=== PATIENT | male | born 1975 | race Caucasian/White ===

== ENCOUNTER 2022-10-14 06:16 | Emergency (ER) | payer OTHER, SELFPAY ==
[2022-10-14] VITALS (26 sets, daily range): BP systolic 112–150; BP diastolic 51–104; PULSE 76–103; RESP 13–24; TEMP 36.6; O2SAT 96–100
--- NOTE | ~2022-10-14 | XR_ITS ---
Clinical Indication: Shortness of breath PA and lateral views of the chest: Comparison: 09/26/2018 Findings: The lungs are clear, without evidence of focal consolidation or pleural effusion. Cardiome diastinal silhouette is within normal limits. Bones and soft tissues are unremarkable. Impression: Normal chest. Reviewed, dictated and finalized at location . Impression: Normal chest.
--- NOTE | 2022-10-14 06:34 | ECG_ITS ---
Measurements Intervals [place] Rate: 91 P: 64 [place]: 162 QRS: 48 QRSD: 97 T: 120 QT: 396 QTc: 487 Interpretive Statements SINUS RHYTHM NONSPECIFIC T-WAVE ABNORMALITY NO PREVIOUS ECG AVAILABLE FOR COMPARISON Electronically Signed On 10-14-2022 10:18:35 CDT by Carley Sorensen M.D.
[2022-10-14 06:54] LABS: Basophils Absolute Auto 0.1 K/mm3 (0.0-0.1); Basophils Percent Auto 0.7 % (0.2-1.2); Eosinophils Absolute Auto 0.4 K/mm3 (0-0.3); Eosinophils Percent Auto 4.2 % (0-4.4); Hematocrit 42.5 % (42.0-52.0); Hemoglobin 15.3 g/dL (14.0-18.0); Immature Granulocyte Absolute 0.03 K/mm3 (0.00-0.031); Immature Granulocyte Percent A 0.3 % (0-0.5); Lymphocytes Absolute Auto 1.85 K/mm3 (0.9-3.2); Lymphocytes Percent Auto 20.2 % (18.3-44.2); Mean Corpuscular Hemoglobin 31.2 pg (26-34); Mean Corpuscular Volume 86.7 fl (80-100); Mean Platelet Volume 10.6 fl (7.4-10.4); Monocytes Absolute Auto 0.7 K/mm3 (0.1-0.6); Monocytes Percent Auto 7.5 % (2.6-8.5); Neutrophils Absolute Auto 6.1 K/mm3 (1.3-6.7); Neutrophils Percent Auto 67.1 % (45.5-73.1); Platelet Count Result 188 k/mm3 (150-375); White Blood Count 9.2 K/mm3 (4.5-10.0)
[2022-10-14 07:08] LABS: Alanine Aminotransferase 93 U/L (6-50); Albumin Level 4.3 g/dL (3.5-5.1); Alkaline Phosphatase 69 U/L (38-126); Anion Gap 6 mmol/L (8-16); Aspartate Amino Transferase 76 U/L (17-59); Bilirubin,Total 0.9 mg/dL (0.2-1.3); Blood Urea Nitrogen 12 mg/dL (9-20); Calcium 8.4 mg/dL (8.4-10.2); Carbon Dioxide 29 mmol/L (22-30); Chloride 103 mmol/L (98-107); Estimated CRCL calculation 124 ml/min; Estimated Glomerular Filt Rate > 60; Glucose 108 mg/dL (65-110); Sodium 138 mmol/L (137-145)
--- NOTE | 2022-10-14 07:14 | PC.NURSE ---
Pt admitted to be a meth user to this RN, states he has been clean for months but relapsed 2 days ago. Pt states he feels there was something different about the meth he took 2 days ago and states i think it was laced with something i don't know what was in there Pt also believes he is having psychiatric symptoms as a result from the recent drug use.
[2022-10-14] MEDS: POTASSIUM CHLORIDE 20 MEQ ER TABLET 40 MEQ PO (07:24)
[2022-10-14] MEDS: IPRATROPIUM BR 0.02% INH SOLN 0.5 MG/2.5 ML VIAL INHALATION (07:47)
[2022-10-14] MEDS: ALBUTEROL SULFATE NEB 2.5 MG/3 ML INH INHALATION (07:47)
[2022-10-14 07:51] LABS: NT Pro B Type Natriuretic Pept 42 pg/mL (19.9-100); Troponin I < 0.012 ng/mL (0.000-0.034)
[2022-10-14 08:09] LABS: INR 0.9; Prothrombin Time 12.9 Seconds (11.1-14.7)
[2022-10-14 08:10] LABS: Partial Thromboplastin Time 32.9 SECONDS (22.3-36.8)
--- NOTE | 2022-10-14 08:10 | ED.SOB ---
HPI - SOB/Dyspnea General Chief Complaint: Shortness of Breath/Dyspnea Stated Complaint: sob Time Seen by Provider: 10/14/22 07:04 Source: patient and RN notes reviewed Mode of arrival: ambulatory Limitations: no limitations History of Present Illness HPI Narrative: This is a 47 year old male who presents for evaluation of shortness of breath. He states that he woke up with sudden onset of shortness of breath. This started approximately 20 minutes prior to arrival. Patient states that he also felt short of breath walking into the ER. He states he almost fell asleep while in room and he woke up suddenly gasping for air. He states that he relapsed with smoking meth this week and he is unsure if this is related. He denies associated chest pain, cough, fever, chills, nausea or vomiting. He denies leg swelling. He has history of hypertension but he denies history of cardiac disease. He quit smoking cigarettes 1 year ago but he still e vapes. Related Data Allergies Allergy/AdvReac Type Severity Reaction Status Date / Time No Known Allergies Allergy Unverified 07/24/15 12:33 Review of Systems Review of Systems: All systems reviewed & are unremarkable except as noted in HPI and below Constitutional: Constitutional: Denies weakness Cardiovascular: Cardiovascular: Denies syncope, Denies rapid heart rate, Denies irregular heart rhythm, Denies leg edema and Denies dyspnea Respiratory: Respiratory: Denies chest congestion, Denies hemoptysis, Denies excessive phlegm production and Reports dyspnea Gastrointestinal: Gastrointestinal: Denies abdominal pain, Denies hematochezia, Denies diarrhea and Denies vomiting Genitourinary: Genitourinary: Denies hematuria, Denies dysuria, Denies penile discharge and Denies testicular pain Musculoskeletal: Musculoskeletal: Denies joint swelling, Denies loss of height and Denies muscle weakness Neurologic: Denies syncope, Denies focal weakness and Denies weakness PMFSH Past Medical History Medical History (Updated 10/14/22 @ 10:17 by Vidhya Rushing MD) Hypertension Social History Social History (Updated 10/14/22 @ 08:14 by Vidhya Rushing MD) Smoking status: Current every day smoker Tobacco type: e-cigarettes/vaping Alcohol intake: former Substance use: current Substance use type: methamphetamine Exam Const: General: no acute distress and alert Nutritional Appearance: well nourished Orientation/consciousness: patient oriented x3 HENMT: Head: normal to inspection Eyes: Pupils: Equal, round and reactive pupils present EOM: EOMs intact bilaterally Neck: Neck: normal visual inspection Chest: Chest palpation & inspection: normal inspection of the chest Resp: Effort & Inspection: normal respiratory effort Auscultation: wheezes expiratory wheezes and posterior Other: able to speak in complete sentences Cardio: Rate: regular rate Rhythm: regular rhythm Heart sounds: no murmurs GI: GI Palp: Yes Soft to palpation, No Tenderness to palpation present (GI), No Guarding due to palpation present (GI) and No Rigid due to palpation Auscultation: normal bowel sounds Skin: General skin exam: normal color Rashes: no rashes Neuro: General: patient oriented x3, moves all extremities and CN's II-XI intact bilaterally Extrem: General: normal to inspection Psych: Mental Status: mental status grossly normal Affect: normal affect Attitude: cooperative Course Reevaluation(s) Reevaluation #1: Patient states he feels much better. I discussed he will be treated for acute bronchitis. He will be prescribed albuterol inhaler and steroids. He will follow up with PCP Date: 10/14/22 Time: 10:15 Vital Signs Vital signs: Vital Signs Temperature 97.8 F 10/14/22 06:19 Pulse Rate 103 H 10/14/22 06:19 Respiratory Rate 22 H 10/14/22 06:19 Blood Pressure 130/83 10/14/22 06:19 Pulse Oximetry 100 10/14/22 06:19 Oxygen Delivery Room Air 10/14/22 06:19
[2022-10-14 08:16] LABS: D Dimer 0.42 ug/mL (<0.48)
== END 2022-10-14 10:36 | disposition home or self-care (01) ==
PROVIDERS: Emergency Medicine; Emergency Provider General Practice
DX: J20.9 Acute bronchitis, unspecified (principal); I10 Essential (primary) hypertension; F17.290 Nicotine dependence, other tobacco product, uncomplicated; R94.31 Abnormal electrocardiogram [ECG] [EKG]
CPT/HCPCS: 36415; 71046; 80053; 83880; 84484; 85025; 85380; 85610; 85730; 93005; 94640; 99284; A9270

== ENCOUNTER 2024-11-05 22:14 | Emergency (ER) | payer BC, SELFPAY ==
--- OUTSIDE RECORDS SUMMARY | 2008-07-22 08:30 | XMS_ITS | Continuity of Care Document ---
Author Organization [facility] Address [address] [place] [address] [address] [place] [address] Phone Care Team Providers Care Cold Saw Operator Name Role Phone Howard Mcbride Unavailable Unavailable Procedures Procedure Date Office/outpatient Visit, Est Eye Exam, New Patient Advance Directives Directive Yes / No Effective Date File Name No Information Encounters Encounter Description Practice Location Reason(s) For Visit Diagnoses Date Provider Providers Copied on Encounter Office/outpat ient Visit, Est [facility], [id number] [place] [address] [address], [place], [place], [id number], [place] tel:[phone] SEC [facility] [place] No Information 1-200 9 Rae Lawrence. [facility] , [address], [place], [place], [facility], [place]. tel:[phone] [facility], [address] [place] [address] [address], [place], [place], [id number], tel:[phone] SEC [facility] [place] No Information July-0 8-200 9 Krishnasamy Arthur. [address] [facility] [address], [place], [address], [place]. tel:[phone] Family History Family Member Type Diagnosis Age At Onset No Information Payers Payer name Insurance type Covered constitution party ID Elylaurel neishasanto(jacoby Ruth [id number] Social History Type Description Quantity Date Captured Comments Sex Male Smoking Status No Information Chief Complaint And Reason For Visit No Information Reason For Referral Reason For Referral No Information History Of Present Illness Encounter Date Complaint History Of Prese nt Illness No Information Functional Status Date Functional Assessmen t No Information Instructions Date Instruction Additional Infor mation No Information Assessments Type Assessment Date No Information Patient Care Teams Name Effective Dates (start - stop) Status Members No Information
--- OUTSIDE RECORDS SUMMARY | 2008-07-22 08:30 | XMS_ITS | Continuity of Care Document ---
Author Organization [facility] Address [address] [place] [address] [address] [place] [address] Phone Care Team Providers Care Gear Design Engineer Name Role Phone Howard Mcbride Unavailable Unavailable Procedures Procedure Date Office/outpatient Visit, Est Eye Exam, New Patient Advance Directives Directive Yes / No Effective Date File Name No Information Encounters Encounter Description Practice Location Reason(s) For Visit Diagnoses Date Provider Providers Copied on Encounter Office/outpat ient Visit, Est [facility], [address] [place] [address] [address], [place], [place], [id number], [place] tel:[phone] SEC [facility] No Information 1-200 9 Rae Lawrence. [facility] , [address], [place], [place], [facility], [place]. tel:[phone] [facility], [address] [place] [address] [address], [place], [place], [id number], tel:[phone] SEC [facility] No Information July-0 8-200 9 Krishnasamy Arthur. [address] [facility] [address], [place], [address], [place]. tel:[phone] Family History Family Member Type Diagnosis Age At Onset No Information Payers Payer name Insurance type Covered constitution party ID Elylaurel neishasanto(jacoby Ruth [id number] Social History Type Description Quantity Date Captured [...]
--- NOTE | ~2024-11-05 | XR_ITS ---
EXAMINATION: XR chest 2V 11/05/2024 22:54 INDICATION: Chest pain PROCEDURE: 2 view chest COMPARISON: 10/14/2022 FINDINGS: The lungs are clear. The cardiomediastinal silhouette is within normal limits. There are no pleural effusions. There is no pneumothorax suspected. IMPRESSION: 1: NO ACUTE CARDIOPULMONARY DISEASE. Reviewed, dictated and finalized at location O.
--- NOTE | 2024-11-05 22:16 | ECG_ITS ---
Test Date: 2024-11-05 22:21:17 Measurements Intervals [place] Rate: 86 P: 59 [place]: 163 QRS: 25 QRSD: 91 T: 93 QT: 358 QTc: 429 Interpretive Statements SINUS RHYTHM DELAYED PRECORDIAL R/S TRANSITION NONSPECIFIC T-WAVE ABNORMALITY- HIGH LATERAL LEADS BASELINE ARTIFACT- I, II, III, AVR, AVL, AVF, V5-V6 BORDERLINE ECG No previous ECG available for comparison Electronically Signed On 11-06-2024 06:22:42 CDT by Tera Cruz D.O.
[2024-11-05 22:39] LABS: Hematocrit 42.8 % (42.0-52.0); Hemoglobin 15.5 g/dL (14.0-18.0); Immature Granulocyte Percent A 0.4 % (0-0.5); Lymphocytes Absolute Auto 2.45 K/mm3 (0.9-3.2); Mean Corpuscular HGB Conc 36.2 g/dl (32-36); Mean Corpuscular Hemoglobin 30.8 pg (26-34); Mean Corpuscular Volume 84.9 fl (80-100); Nucleated Red Blood Cells Absolute Auto 0.000 K/mm3 (0.0-0.012); Nucleated Red Blood Cells Perc 0.0 % (0.0-0.2); Platelet Count Result 196 k/mm3 (150-375); Red Blood Count 5.04 M/mm3 (4.6-6.20); White Blood Count 8.3 K/mm3 (4.5-10.0)
[2024-11-05 22:51] LABS: Alanine Aminotransferase 58 U/L (6-50); Albumin Level 4.9 g/dL (3.5-5.1); Alkaline Phosphatase 75 U/L (38-126); Anion Gap 11 mmol/L (4-12); Aspartate Amino Transferase 51 U/L (17-59); Bilirubin,Total 0.8 mg/dL (0.2-1.3); Blood Urea Nitrogen 9 mg/dL (9-20); Calcium 9.1 mg/dL (8.4-10.2); Carbon Dioxide 24 mmol/L (22-30); Chloride 104 mmol/L (98-107); Estimated Glomerular Filt Rate > 60; Glucose 113 mg/dL (65-110); Lipase 153 U/L (23-300); Potassium 3.3 mmol/L (3.4-5.0); Sodium 139 mmol/L (137-145); Total Protein 7.8 g/dL (6.3-8.2)
[2024-11-05 22:55] LABS: INR 0.9; Prothrombin Time 12.1 Seconds (11.1-14.7)
[2024-11-05 22:56] LABS: Partial Thromboplastin Time 28.9 Seconds (22.3-36.8)
[2024-11-05 23:03] LABS: Troponin I < 0.012 ng/mL (0.000-0.034)
[2024-11-05 23:14] VITALS: BP 169/109; PULSE 79; RESP 17; TEMP 37.1; O2SAT 98
[2024-11-05 23:15] VITALS: BP 169/109; PULSE 77; PULSE 78; RESP 16; O2SAT 97
--- OUTSIDE RECORDS SUMMARY | 2024-11-05 23:55 | XMS_ITS | Patient Health Record ---
Author Organization [facility] Address [address] [place] [address] Care Team Providers Care Hearings Reporter Name Role Phone Darline Miranda Primary Care Provider [phone] Mayuri Ibanez Unavailable [phone] Allergies No Known Allergies Reason For Referral No Information Medications Medication SIG (Take, Route, Frequency, Duration) Notes Start Date End Date Status hydroCHLOROthiazide 12.5 mg TAKE 1 CAPSULE BY MOUTH EVERY MORNING; Duration: 30 Active Losartan Potassium 100 mg 1 tablet by mouth once daily; Duration: 30 days Active amLODIPine Besylate 10 mg 1 tablet by mouth once daily; Duration: 30 days Active OLANZapine 2.5 MG 1 tablet before bed Orally Once a day; Duration: 7 day(s) 12/01/2021 Not-Taking LORazepam 1 MG 1 tablet at bedtime as needed Orally every 12 hours Not-Taking DULoxetine HCl 30 mg TAKE 1 CAPSULE BY MOUTH TWICE A DAY Orally Twice a day; Duration: 30 days Need refilled Not-Taking methylPREDNISolone 4 MG as directed Orally daily; Duration: 6 days Please dispense a Medrol Dosepak 10/06/2023 Not-Taking Ibuprofen 800 mg 1 tablet by mouth twice daily; Duration: 14 days Active Aspirin 81 MG 1 tablet Orally Once a day; Duration: 90 days Active cloNIDine HCl 0.2 MG 1 tablet now Orally once daily; Duration: 1 day 03/02/2021 Not-Taking Multivitamin - 1 tablet Orally Once a day; Duration: 90 days Active Cyclobenzaprine HCl 5 mg TAKE 1 TABLET B Y MOUTH AT BEDTIME NEEDED; Duration: 30 Not-Taking Ondansetron HCl 4 MG 1 tablet Orally Once a day; Duration: 30 day(s) 12/01/2021 Not-Taking Social History Tobacco Use: Social History Observation Description Date Details (start date - stop date) Current Smoker NA - NA Sex Assigned At : Social History Observation Description Sex Assigned At Male Alcohol Screen (Audit-C) Question Answer Notes Did you have a drink containing alcohol in the p ast year? No Points 0 Interpretation Negative Tobacco Control (Standard) Question Answer Notes Tobacco use: Current smoker Section Notes: Last use 03/02/2021 this am with MDMA, Meth, and Cocaine Last use 03/02/2021 this am with MDMA, Meth, and Cocaine MDMA, Meth, and Cocaine MDMA, Meth, and Cocaine MDMA, Meth, and Cocaine MDMA, Meth, and Cocaine MDMA, Meth, and Cocaine MDMA, Meth, and Cocaine MDMA, Meth, and Cocaine MDMA, Meth, and Cocaine MDMA, Meth, and Cocaine MDMA, Meth, and Cocaine Problems Problem Type SNOMED Code ICD Code Onset Dates Problem Status W/U Status Risk Notes Problem Morbid obesity (disorder) (841034041) Morbid (severe) obesity due to excess calories (E66.01) Active confirmed Problem Tobacco user (900752268) Nicotine dependence, unspecified, uncomplicated (F17.200) Active confirmed Problem Hypertension (93040038) Hypertension (I10) Active confirmed Problem Hyperlipidemia (22088838) Hyperlipidemia (E78.5) Active confirmed Problem Carpal tunnel syndrome (67454786) Carpal tunnel syndrome (G56.00) Active confirmed Problem Screening (078108211) Screening (Z13.9) Active confirmed Problem Moderate recurrent major depression (80675398) Major depressive disorder, recurrent episode, moderate (F33.1) 01/14/20 22 Active confirmed Problem Physical examination, complete (19239448) Physical exam (Z00.00) Active confirmed Problem Finger fracture (05437814) Finger fracture (S62.609A) Active confirmed Problem Obesity (699906759) Obesity (BMI 30-39.9) (E66.9) Active confirmed Problem Tobacco use (965486536) Tobacco use disorder (F17.200) Active confirmed Problem Paresthesia of both hands (532036967) Paresthesia of both hands (R20.2) Active confirmed Problem Methamphetamine use disorder, severe, 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) Active confirmed Problem Paronychia of finger of right hand (4797466969954186 1) Paronychia of finger of right hand (L03.011) Active confirmed Vital Signs Heart Rate 90 /min 03/28/2024 Respiratory Rate 16 /min 03/28/2024 Blood pressure diastolic 80 mm Hg 03/28/2024 Oximetry 98 % 03/28/2024 Height 71 in 03/28/2024 Blood pressure systolic 132 mm Hg 03/28/2024 Weight 295.4 lbs 03/28/2024 BMI 41.2 kg/m2 03/28/2024 Encounters Encounter Location Date Provider Diagnosis [facility] [address] [place] [address] 03/28/2024 Darline Miranda Hypertension I10 [facility] [address] [place] [address] 07/25/2024 Mayuri Ibanez Hypertension I10 Assessments Encounter Date Diagnosis (ICD Code) Assessment Notes Treatment Notes Treatment Clinical Notes Section Notes 03/28/2024 Hypertension (ICD-10 - I10) 07/25/2024 Hypertension (ICD-10 - I10) Plan Of Treatment Next Appt Details Provider Name:Alma Sarabia , 11/19/2024 03:40:00 PM, [address] [place], [address], Insurance Providers Payer Name Payer Address Payer Phone Subscriber Number Group Number Insured Name Patient Relationship to Insured Coverage Start Date Coverage End Date [facility] Att Claims Department [address] [place] [id number] Ahsan Harmon Self - patient is the insured 1 [employer] [facility] [employer] [facility] Claims Department [address] [id number] Ahsan Harmon Self - patient is the insured 1 Medical (General) History Medical History History ICD Code hypertension hyperlipidemia Surgical History Surgery Date(Month/Year) Brain Surgery 1974 Dental surgery 02/2023 Hospitalization History Reason Date(Month/Year) Chest pain [facility] [id number] Brain Surgery 1974
[2024-11-06] MEDS: FAMOTIDINE 20 MG/2 ML VIAL IV PUSH (00:11)
--- NOTE | 2024-11-06 00:46 | ED.CHESTPAIN ---
HPI - Chest Pain General Chief Complaint: Chest Pain Stated Complaint: chest pain Time Seen by Provider: 11/05/24 23:11 History of Present Illness HPI narrative: Patient is a 49-year-old male who presents emergency department this morning complaining of left-sided chest pain that is been ongoing for the past 2 days. States that he did not think much of it but today he checked his blood pressure and he noted that it was 160 systolic which is unusual for him so he decided to come in and get checked out. Patient states that he does have a history of high blood pressure and is very good about taking his blood pressure medications on time. Denies any additional symptoms including any nausea or vomiting, any recent illness, fevers or chills. No additional symptoms or concerns at this time. Patient denies any history of cardiovascular disease. Related Data Allergies Allergy/AdvReac Type Severity Reaction Status Date / Time No Known Allergies Allergy Unverified 07/24/15 12:33 Review of Systems Review of Systems: All systems are reviewed and are negative unless stated otherwise in the HPI. [facility] Past Medical History Medical History Hypertension Social History Social History Smoking status: Current every day smoker Tobacco type: e-cigarettes/vaping Alcohol intake: former Substance use: current Substance use type: methamphetamine Exam Narrative: General: Alert, awake, afebrile, in no acute distress. HEENT: PERRL, no rhinorrhea, no post nasal drip, oropharynx clear. Neck: Trachea midline, no JVD, no lymphadenopathy. Cardiovascular: Regular rate and rhythm, no murmurs, rubs or gallops, no peripheral edema. Respiratory: Clear to auscultation bilaterally, no tachypnea, no wheezing, no rhonchi, no rubs, no respiratory distress. Abdomen: Soft, nontender, nondistended, no rebound, no guarding, no peritoneal signs. Musculoskeletal: No joint swelling or deformity, normal muscle tone. Skin: No rashes or petechia, no signs of infection. Psychiatric: Alert and oriented, normal behavior and judgment for situation. Neurological: Alert and oriented to person, place, and time. Follows all commands. No focal deficits, speech is clear and fluent. Course Vital Signs Vital signs: Vital Signs Temperature 98.7 F 11/05/24 23:14 Pulse Rate 79 11/05/24 23:14 Respiratory Rate 17 11/05/24 23:14 Blood Pressure 169/109 H 11/05/24 23:14 Pulse Oximetry 98 11/05/24 23:14 Oxygen Delivery Room Air 11/05/24 23:14 Temperature 98.7 F 11/05/24 23:14 Pulse Rate 78 11/05/24 23:15 Respiratory Rate 16 11/05/24 23:15 Blood Pressure 169/109 H 11/05/24 23:15 Pulse Oximetry 97 11/05/24 23:15 Oxygen Delivery Room Air 11/05/24 23:15 MDM - Chest Pain MDM Narrative Medical decision making narrative: The patient was evaluated by myself in the emergency department. History is obtained from patient who is an independent historian and physical exam was performed. External medical records were reviewed at this time. IV was established and pertinent tests were ordered. Patient was administered 20 mg of IV Pepcid. EKG was obtained which revealed sinus rhythm rate of 86 beats per minute, no evidence of acute ischemia. EKG was independently interpreted by me and is currently pending official cardiology read. Laboratory results obtained revealing no acute process. Troponin negative. Imaging studies obtained included CXR which was independently interpreted by me revealing no acute cardiopulmonary process, which is pending final radiology interpretation. Differential diagnosis considerations include acute coronary syndrome, acute stress reaction, costochondritis, hypertensive urgency versus emergency. Infectious process such as pneumonia. Comorbidities impacting this visit include history of hypertension. I have evaluated and discussed social determinants of health with the patient that could potentially impact subsequent diagnosis and treatment plans. On repeat assessment of the patient, reevaluation revealed that the patient is doing well and is in no acute distress. Patient symptoms have improved since he arrived to our emergency department. Currently chest pain-free. Repeat vital signs were all reviewed and noted to be stable. Differential diagnosis and treatment plan were discussed with the patient at bedside. Patient agrees with discussion and after shared medical decision making agrees with discharge. All questions were answered to the patient's satisfaction. Patient will follow up with Cardiology in 3-5 days. Patient is also instructed to keep a blood pressure log instructed blood pressure at home twice daily same time every day in the morning and same time every day and night until he follows up with Cardiology as he may need to have his blood pressure medications readjusted if his blood pressure remained high. Patient was provided with strict return precautions and instructed to return to the emergency department if any new or worsening symptoms develop. The patient was discharged in stable condition. Lab Data 11/05/24 22:33 11/05/24 22:33 Labs: Lab Results 11/05/24 Range/Units 22:33 WBC 8.3 (4.5-10.0) K/mm3 RBC 5.04 (4.6-6.20) M/mm3 Hgb 15.5 (14.0-18.0) g/dL Hct 42.8 (42.0-52.0) % MCV 84.9 (80-100) fl MCH 30.8 (26-34) pg MCHC 36.2 H (32-36) g/dl RDW 13.0 (11.5-14.5) % Plt Count 196 (150-375) k/mm3 MPV 10.1 (7.4-10.4) fl Immature Gran % (Auto) 0.4 (0-0.5) % Neut % (Auto) 59.0 (45.5-73.1) % Lymph % (Auto) 29.7 (18.3-44.2) % [place] % (Auto) 7.3 (2.6-8.5) % Eos % (Auto) 3.0 (0-4.4) % Baso % (Auto) 0.6 (0.2-1.2) % Lymph # (Auto) 2.45 (0.9-3.2) K/mm3 [place] # (Auto) 0.6 (0.1-0.6) K/mm3 Eos # (Auto) 0.3 (0-0.3) K/mm3 Baso # (Auto) 0.1 (0.0-0.1) K/mm3 Abs Immat Gran (auto) 0.03 (0.00-0.031) K/mm3 Absolute Neuts (auto) 4.9 (1.3-6.7) K/mm3 Absolute Nucleated RBC 0.000 (0.0-0.012) K/mm3 Nucleated RBC % 0.0 (0.0-0.2) % PT 12.1 (11.1-14.7) Seconds INR 0.9 APTT 28.9 (22.3-36.8) Seconds Sodium 139 (137-145) mmol/L Potassium 3.3 L (3.4-5.0) mmol/L Chloride 104 (98-107) mmol/L Carbon Dioxide 24 (22-30) mmol/L Anion Gap 11 (4-12) mmol/L BUN 9 (9-20) mg/dL Creatinine 0.94 (0.7-1.3) mg/dL Estim Creat Clear Calc Not Reportable Estimated GFR > 60 (59 - ) Glucose 113 H (65-110) mg/dL Calcium 9.1 (8.4-10.2) mg/dL Total Bilirubin 0.8 (0.2-1.3) mg/dL AST 51 (17-59) U/L ALT 58 H (6-50) U/L Alkaline Phosphatase 75 (38-126) U/L Troponin I < 0.012 (0.000-0.034) ng/mL Total Protein 7.8 (6.3-8.2) g/dL Albumin 4.9 (3.5-5.1) g/dL Lipase 153 (23-300) U/L Discharge Plan Discharge Clinical Impression: Chest pain Patient Disposition: Home Condition: Improved Instructions: Antibiotic Form, Chest Pain (ED) Additional Instructions: Please follow-up with the sheet rock applicator you were provided with today within the next 3-5 days. Call tomorrow to set up a follow-up appointment. You were instructed to keep a blood pressure log and to check your blood pressure 2 times every day for the next 1-2 weeks to monitor it as you may need your blood pressure medications were adjusted. Return to the ED if any new or worsening symptoms develop. Patient Language: Telugu Prescriptions: No Action albuterol sulfate 90 mcg/actuation HFA aerosol inhaler 2 puff inhalation QID PRN (Reason: shortness of breath or wheezing) Qty: 6.7 0RF prednisone 50 mg tablet 50 mg PO DAILY Qty: 6 0RF Follow-up/Referrals: Pardeep Pacheco MD [Physician, Cardiology] - 3 Days PHYSICIAN,SAIL FINISHER MACHINE [Primary Care Provider, Internal Medicine] Time of Disposition: 00:46
[2024-11-06 01:00] VITALS: BP 136/77; PULSE 74; RESP 18; O2SAT 98
== END 2024-11-06 01:00 | disposition home or self-care (01) ==
PROVIDERS: Emergency Provider Emergency Medicine
DX: R07.9 Chest pain, unspecified (principal); I10 Essential (primary) hypertension; F17.290 Nicotine dependence, other tobacco product, uncomplicated
CPT/HCPCS: 36415; 71046; 80053; 83690; 84484; 85025; 85610; 85730; 93005; 96374; 99284